=== PATIENT | female | born 1955 | race Caucasian/White ===

== ENCOUNTER → 2018-03-23 16:02 | Outpatient (CLI) | payer BC, SELFPAY ==
[2018-03-25 15:47] LABS: Progesterone 4.6 ng/mL
[2018-03-26 22:16] LABS: Estrogen 125.4 pg/mL
== END ==
PROVIDERS: Visit Provider Naturopath
DX: N95.1 Menopausal and female climacteric states (principal)
CPT/HCPCS: 36415; 82672; 83001; 83002; 84144

== ENCOUNTER → 2018-04-27 14:45 | Outpatient (CLI) | payer BC, SELFPAY ==
[2018-04-27 16:41] LABS: Free T3, Triiodothyronine Free 3.24 pg/mL (2.77-5.27)
== END ==
PROVIDERS: Visit Provider Naturopath
DX: E03.9 Hypothyroidism, unspecified (principal)
CPT/HCPCS: 36415; 84439; 84481

== ENCOUNTER → 2018-06-02 12:30 | Outpatient (CLI) | payer BC, SELFPAY ==
[2018-06-02 14:52] LABS: Free T3, Triiodothyronine Free 4.21 pg/mL (2.77-5.27); Free T4, Direct Thyroxine 1.52 ng/dL (0.78-2.19)
[2018-06-02 15:05] LABS: Thyroid Stimulating Hormone < 0.02 uIU/mL (0.47-4.68)
== END ==
PROVIDERS: PCP Family Medicine; Visit Provider Naturopath
DX: E06.3 Autoimmune thyroiditis (principal)
CPT/HCPCS: 36415; 84439; 84443; 84481

== ENCOUNTER → 2018-08-13 14:11 | Outpatient (CLI) | payer BC, SELFPAY ==
[2018-08-15 12:55] LABS: Sex Hormone Binding Globulin 97 nmol/L (14-73)
[2018-08-15 15:33] LABS: Estradiol < 15 pg/mL
[2018-08-15 15:34] LABS: Progesterone 3.4 ng/mL
[2018-08-18 09:36] LABS: Estrogen 193.6 pg/mL
== END ==
PROVIDERS: Visit Provider Naturopath
DX: N95.1 Menopausal and female climacteric states (principal)
CPT/HCPCS: 36415; 82670; 82672; 83001; 83002; 84144; 84270

== ENCOUNTER → 2018-11-10 13:19 | Outpatient (CLI) | payer BC, SELFPAY ==
[2018-11-10 14:45] LABS: Free T3, Triiodothyronine Free 3.36 pg/mL (2.77-5.27); Free T4, Direct Thyroxine 1.27 ng/dL (0.78-2.19)
[2018-11-10 14:59] LABS: Thyroid Stimulating Hormone < 0.02 uIU/mL (0.47-4.68)
== END ==
PROVIDERS: PCP Family Medicine; Visit Provider Naturopath
DX: E07.9 Disorder of thyroid, unspecified (principal)
CPT/HCPCS: 36415; 84439; 84443; 84481

== ENCOUNTER → 2018-11-23 08:26 | Outpatient (CLI) | payer BC, SELFPAY ==
--- NOTE | 2018-11-23 | DI.US.S_ITS ---
PROCEDURE: US THYROID INDICATIONS: HISTORY OF THYROID NODULES TECHNIQUE: Real-time scanning was performed of the thyroid gland, with image documentation. COMPARISON: [facility], [place], THYROID, 01/21/2018, 11:06. FINDINGS: Right: The right thyroid measures 9 x 11 x 34 mm and contains no cystic or solid mass. Left: The left thyroid gland measures 7 x 8 x 29 mm, also normal in size, and within the mid third of the left thyroid lobe there is a 3 x 2 x 3 mm nodule not changed from the prior study. There is inferior thyroid nodule measuring 5 x 4 x 3 mm and previously the same in size. No new nodule has developed Isthmus: 2 mm thickness. IMPRESSION: Previously present left-sided two small thyroid nodules at the middle third and the lower third of the gland are stable in appearance over time, with reference to the prior thyroid ultrasound in January of last year. Dictated by: Abdirahman Quinonez M.D. on 11/23/2018 at 11:29 Approved by: Abdirahman Quinonez M.D. on 11/23/2018 at 11:32
== END ==
PROVIDERS: PCP Family Medicine; Visit Provider Naturopath
DX: E04.2 Nontoxic multinodular goiter (principal)
CPT/HCPCS: 76536

== ENCOUNTER → 2019-01-29 13:39 | Outpatient (CLI) | payer BC, SELFPAY ==
--- NOTE | 2019-01-29 | DI.US.S_ITS ---
PROCEDURE: US ABDOMEN COMPLETE INDICATIONS: UPPER ABDOMINAL PAIN TECHNIQUE: Real-time scanning was performed of the abdominal and retroperitoneal organs, with image documentation. COMPARISON: [facility], CT, ABDOMEN/PELVIS WITH CONTRAST, 01/16/2017, 7:36. FINDINGS: Liver: Liver is normal in size and homogeneous in echotexture. Gallbladder: Absent Biliary ducts: Intrahepatic bile ducts are non-dilated. Extrahepatic bile duct caliber measures 6-7 mm. Normal is 6-7 mm or less in diameter, or 10 mm or less post-cholecystectomy. Pancreas: Visualized portions of the pancreas are sonographically normal. Spleen: Spleen is normal in size and homogeneous in echotexture. Kidneys: Kidneys are normal in size and echotexture. Right kidney measures 10.2 cm long; left kidney measures 10.2 cm long. No hydronephrosis or nephrolithiasis. No solid masses. The renal cortex measures within normal limits for thickness. Aorta: Visualized aorta is normal in caliber at less than 3 cm. Iliacs: Proximal common iliac arteries are normal in caliber at less than 2.5 cm. IVC: Intrahepatic inferior vena cava is patent. Miscellaneous: No free abdominal fluid. Additional, dedicated ultrasound scanning is performed at the area of left lower quadrant pain, as described by the patient. No focal ultrasound abnormalities are seen within this region. IMPRESSION: No imaging explanation is found for this patient's presenting history of abdominal pain. No ultrasound abnormalities can be seen involving the left lower quadrant. Status post cholecystectomy, without biliary dilatation. Dictated by: Matheus Davenport M.D. on 01/29/2019 at 15:37 Approved by: Matheus Davenport M.D. on 01/29/2019 at 15:39
== END ==
PROVIDERS: PCP Family Medicine; Visit Provider Naturopath
DX: R10.10 Upper abdominal pain, unspecified (principal); R10.32 Left lower quadrant pain; Z90.49 Acquired absence of other specified parts of digestive tract
CPT/HCPCS: 76700

== ENCOUNTER → 2019-02-26 13:26 | Outpatient (CLI) | payer BC, SELFPAY ==
--- NOTE | 2019-02-26 | DI.CT.S_ITS ---
PROCEDURE: CT ABDOMEN PELVIS W CON INDICATIONS: ABDOMINAL PAIN/DIVERTICULOSIS TECHNIQUE: After the administration of oral and intravenous contrast, 5 mm thick sections acquired from the diaphragms to the symphysis. 5 mm thick coronal and sagittal reformats were performed. For radiation dose reduction, the following was used: automated exposure control, adjustment of mA and/or kV according to patient size. COMPARISON: [facility], CT, ABDOMEN/PELVIS WITH CONTRAST, 01/16/2017, 7:36. FINDINGS: Image quality: Excellent. ABDOMEN: Lung bases: Lung bases are clear. Heart size is normal. Solid organs: Hepatic steatosis. Gallbladder negative. Prominence of the extrahepatic bile ducts: No radiopaque choledocholithiasis is seen and this could be due to postoperative appearance. Biliary system is non-dilated. Pancreas enhances normally. Spleen is normal in size and enhancement. No adrenal nodules. Kidneys are normal in size and enhancement, without hydronephrosis. Peritoneum and bowel: Stomach, small bowel, and colon loops are normal in caliber and wall thickness. No free fluid or air. Appendix is not clearly identified however no suspicious pericecal inflammatory changes are identified Moderate stool is present. No evidence of diverticulitis is seen. Nodes and vessels: No retroperitoneal or mesenteric adenopathy. Aorta and inferior vena cava are normal in caliber. Miscellaneous: No ventral hernias. PELVIS: Genitourinary: Bladder wall thickness is normal. Miscellaneous: No inguinal hernias or adenopathy. Bones: No suspicious bony lesions. No vertebral body compression fractures. IMPRESSION: No acute process. No evidence of acute diverticulitis. Hepatic steatosis. Dictated by: Devon Rapp M.D. on 02/26/2019 at 15:20 Approved by: Devon Rapp M.D. on 02/26/2019 at 15:26
== END ==
PROVIDERS: PCP Family Medicine; Referring Provider Naturopath; Visit Provider Family Medicine
DX: R10.9 Unspecified abdominal pain (principal); K57.90 Diverticulosis of intestine, part unspecified, without perforation or abscess without bleeding; K76.0 Fatty (change of) liver, not elsewhere classified
CPT/HCPCS: 74177; Q9967

== ENCOUNTER → 2019-03-03 13:59 | Outpatient (CLI) | payer BC, SELFPAY ==
[2019-03-03 14:30] LABS: Add Manual Diff / Slide Review NO; Basophils Absolute Auto 100 /uL (0-100); Basophils Percent Auto 1.1 % (0-2); Eosinophils Absolute Auto 100 /uL (0-450); Eosinophils Percent Auto 1.8 % (2-4); Hematocrit 41.5 % (36-46); Lymphocytes Absolute Auto 2100 /uL (1100-4500); Lymphocytes Percent Auto 36.7 % (25-40); Mean Corpuscular HGB Conc 33.7 % (30-36); Mean Corpuscular Hemoglobin 32.1 PG (26-34); Mean Corpuscular Volume 95.3 fL (80-100); Monocytes Absolute Auto 300 /uL (0-900); Monocytes Percent Auto 5.4 % (3-14); Neutrophils Absolute Auto 3100 /uL (1500-7000); Platelet Count 256 X10^3/uL (150-400); Red Blood Cell Count 4.36 X10^6/uL (4.0-5.2); Red Cell Distribution Width 11.7 % (11.6-14.8); White Blood Cell Count 5.6 X10^3/uL (4.5-11.0)
[2019-03-03 14:51] LABS: Erythrocyte Sedimentation Rate 7 MM/HR (0-20)
[2019-03-03 15:03] LABS: C-Reactive Protein Quant < 0.5 mg/dL (<1.0)
[2019-03-03 15:12] LABS: Free T3, Triiodothyronine Free 4.16 pg/mL (2.77-5.27)
== END ==
PROVIDERS: PCP Family Medicine; Visit Provider Naturopath
DX: K58.9 Irritable bowel syndrome, unspecified (principal); E03.9 Hypothyroidism, unspecified
CPT/HCPCS: 36415; 84436; 84481; 85025; 85651; 86140

== ENCOUNTER → 2019-05-25 12:20 | Outpatient (CLI) | payer BC, SELFPAY ==
[2019-05-25 13:19] LABS: Free T3, Triiodothyronine Free 4.14 pg/mL (2.77-5.27)
[2019-05-25 13:33] LABS: Thyroid Stimulating Hormone < 0.02 uIU/mL (0.47-4.68)
[2019-05-25 16:11] LABS: Progesterone, Total 2.28 ng/mL
[2019-05-28 10:15] LABS: Estrogen 79.7 pg/mL
== END ==
PROVIDERS: PCP Family Medicine; Visit Provider Naturopath
DX: L27.8 Dermatitis due to other substances taken internally (principal); E03.9 Hypothyroidism, unspecified; N95.1 Menopausal and female climacteric states
CPT/HCPCS: 36415; 82672; 84144; 84439; 84443; 84481; 86255

== ENCOUNTER → 2019-09-15 13:11 | Outpatient (CLI) | payer BC, SELFPAY ==
[2019-09-20 14:11] LABS: Estrogen 86.3 pg/mL
== END ==
PROVIDERS: PCP Family Medicine; Visit Provider Naturopath
DX: N95.1 Menopausal and female climacteric states (principal)
CPT/HCPCS: 36415; 82672; 84144

== ENCOUNTER → 2019-10-05 10:45 | Outpatient (CLI) | payer BC, SELFPAY ==
[2019-10-05 12:51] LABS: Free T3, Triiodothyronine Free 4.13 pg/mL (2.77-5.27); Free T4, Direct Thyroxine 1.14 ng/dL (0.78-2.19)
[2019-10-05 13:05] LABS: Thyroid Stimulating Hormone < 0.02 uIU/mL (0.47-4.68)
== END ==
PROVIDERS: PCP Family Medicine; Visit Provider Naturopath
DX: E06.3 Autoimmune thyroiditis (principal)
CPT/HCPCS: 36415; 84439; 84443; 84481

== ENCOUNTER → 2019-10-08 11:57 | Outpatient (CLI) | payer BC, SELFPAY ==
[2019-10-08 12:54] LABS: Erythrocyte Sedimentation Rate 5 MM/HR (0-20)
[2019-10-08 13:46] LABS: C-Reactive Protein Quant < 0.5 mg/dL (<1.0)
[2019-10-08 14:50] LABS: Folate > 20.0 ng/mL (2.76-20.0); Vitamin B12 755 pg/mL (239-931)
== END ==
PROVIDERS: Visit Provider Naturopath
DX: L27.8 Dermatitis due to other substances taken internally (principal)
CPT/HCPCS: 36415; 82607; 82746; 85651; 86140

== ENCOUNTER → 2019-10-13 14:46 | Outpatient (CLI) | payer BC, SELFPAY ==
--- NOTE | 2019-10-13 | DI.US.S_ITS ---
PROCEDURE: US THYROID INDICATIONS: THYROID NODULES TECHNIQUE: Real-time scanning was performed of the thyroid gland, with image documentation. COMPARISON: [facility], [place], [place] THYROID, 11/23/2018, 9:31. FINDINGS: Right: Thyroid lobe measures 3.7 x 0.9 x 0.8 cm, and is homogeneous in echotexture. Left: Thyroid lobe measures 2.4 x 0.6 x 0.6 cm, and is homogenous in echotexture. Isthmus: 7.0 mm thick. Nodule number: 1 Location: Left mid Size: Unchanged at 0.2 x 0.2 x 0.2 cm. Composition: Solid Echogenicity: Hypoechoic Shape: wider than tall. Margins: Smooth Echogenic foci: None Total points: 4 ACR TI-RADS category: Moderately suspicious Nodule number: 2 Location: Left inferior Size: Unchanged at 0.7 x 0.3 x 0.4 cm. Composition: Solid Echogenicity: Hypoechoic Shape: wider than tall. Margins: Smooth Echogenic foci: None Total points: 4 ACR TI-RADS category: Suspicious IMPRESSION: Stable left thyroid nodules. Given the small size, no follow up is warranted. ACR TI-RADS definitions and recommendations: TI-RADS 1 (benign): 0 points. FNA not needed. TI-RADS 2 (not suspicious): 2 points. FNA not needed. TI-RADS 3 (mildly suspicious): 3 points. * FNA if 2.5 cm or larger, follow up if 1.5 cm or larger (at 1, 3, and 5 years). TI-RADS 4 (moderately suspicious): 4-6 points. * FNA if 1.5 cm or larger, follow up if 1 cm or larger (at 1, 2, 3, and 5 years). TI-RADS 5 (highly suspicious): 7 points or more. * FNA if 1 cm or larger, follow up if 0.5 cm or larger (every year for 5 years). Dictated by: Neil BERNARDO Interpreted: Sol Shaw MD on 10/13/2019 at 15:45 Approved by: Sol Shaw MD, PhD on 10/13/2019 at 16:36
== END ==
PROVIDERS: Visit Provider Naturopath
DX: E04.2 Nontoxic multinodular goiter (principal)
CPT/HCPCS: 76536

== ENCOUNTER → 2020-10-16 10:46 | Outpatient (CLI) | payer BC, SELFPAY ==
--- NOTE | 2020-10-16 | DI.US.S_ITS ---
PROCEDURE: US THYROID INDICATIONS: THYROID NODULE TECHNIQUE: Real-time scanning was performed of the thyroid gland, with image documentation. COMPARISON: [facility], [place], [place] THYROID, 10/13/2019, 14:53. FINDINGS: Right: Thyroid lobe measures 4.2 x 1-2 x 0.8 cm, and is homogeneous in echotexture. Left: Thyroid lobe measures 3.2 x 1.0 x 0.7 cm, and is homogenous in echotexture. No significant change in appearance or size of left sub 5 mm and subcentimeter nodules. Isthmus: 3.0 mm thick. IMPRESSION: Stable appearance and size of left sub 5 mm and subcentimeter nodules. Given the small size, no follow-up is warranted. ACR TI-RADS definitions and recommendations: TI-RADS 1 (benign): 0 points. FNA not needed. TI-RADS 2 (not suspicious): 2 points. FNA not needed. TI-RADS 3 (mildly suspicious): 3 points. * FNA if 2.5 cm or larger, follow up if 1.5 cm or larger (at 1, 3, and 5 years). TI-RADS 4 (moderately suspicious): 4-6 points. * FNA if 1.5 cm or larger, follow up if 1 cm or larger (at 1, 2, 3, and 5 years). TI-RADS 5 (highly suspicious): 7 points or more. * FNA if 1 cm or larger, follow up if 0.5 cm or larger (every year for 5 years). Dictated by: Neil BERNARDO Interpreted: France Rothman MD on 10/16/2020 at 12:54 Approved by: France Rothman M.D. on 10/16/2020 at 15:01
[2020-10-16 12:34] LABS: Free T3, Triiodothyronine Free 3.33 pg/mL (2.77-5.27); Free T4, Direct Thyroxine 1.19 ng/dL (0.78-2.19)
[2020-10-16 12:54] LABS: Thyroid Stimulating Hormone < 0.015 uIU/mL (0.47-4.68)
== END ==
PROVIDERS: Referring Provider Naturopath; Visit Provider Naturopath
DX: E04.2 Nontoxic multinodular goiter (principal)
CPT/HCPCS: 36415; 76536; 84439; 84443; 84481

== ENCOUNTER → 2021-05-04 08:06 | Outpatient (CLI) | payer BC, SELFPAY ==
[2021-05-04 09:58] LABS: Free T3, Triiodothyronine Free 3.63 pg/mL (2.77-5.27); Free T4, Direct Thyroxine 0.96 ng/dL (0.78-2.19)
[2021-05-04 10:13] LABS: Thyroid Stimulating Hormone < 0.015 uIU/mL (0.47-4.68)
[2021-05-04 12:32] LABS: Alanine Aminotransferase 34 IU/L (<35); Albumin 4.3 g/dL (3.5-5.0); Albumin Globulin Ratio 1.5 (1.0-2.8); Alkaline Phosphatase 113 U/L (38-126); Aspartate Aminotransferase 44 IU/L (14-36); Bilirubin Total 0.5 mg/dL (0.2-1.3); Blood Urea Nitrogen 17 mg/dL (7-17); Carbon Dioxide 29 mmol/L (22-32); Chloride 106 mmol/L (98-107); Estimated Glomerular Filt Rate > 60.0 mL/min (>60); Globulin 2.9 g/dL (1.7-4.1); Glucose 78 mg/dL (80-110); HEMOLYSIS < 15 (0-50); Potassium 5.3 mmol/L (3.4-5.1); Sodium 141 mmol/L (137-145); Total Protein 7.2 g/dL (6.3-8.2)
[2021-05-04 16:13] LABS: Add Manual Diff / Slide Review NO; Basophils Absolute Auto 0 /uL (0-100); Basophils Percent Auto 0.5 % (0-2); Eosinophils Absolute Auto 200 /uL (0-450); Eosinophils Percent Auto 2.5 % (2-4); Hematocrit 38.4 % (36-46); Lymphocytes Absolute Auto 2200 /uL (1100-4500); Lymphocytes Percent Auto 33.2 % (25-40); Mean Corpuscular HGB Conc 33.8 % (30-36); Mean Corpuscular Hemoglobin 31.7 PG (26-34); Mean Corpuscular Volume 93.6 fL (80-100); Monocytes Absolute Auto 400 /uL (0-900); Monocytes Percent Auto 5.8 % (3-14); Neutrophils Absolute Auto 3800 /uL (1500-7000); Platelet Count 281 X10^3/uL (150-400); Red Cell Distribution Width 11.8 % (11.6-14.8); White Blood Cell Count 6.6 X10^3/uL (4.5-11.0)
== END ==
PROVIDERS: Referring Provider Naturopath; Visit Provider Naturopath
DX: K58.9 Irritable bowel syndrome, unspecified (principal); E06.3 Autoimmune thyroiditis
CPT/HCPCS: 36415; 80053; 84439; 84443; 84481; 85025

== ENCOUNTER → 2022-01-21 08:39 | Outpatient (CLI) | payer MEDICARE, SELFPAY ==
[2022-01-21 10:00] LABS: Add Manual Diff / Slide Review NO; Basophils Absolute Auto 0 /uL (0-100); Basophils Percent Auto 0.6 % (0-2); Eosinophils Absolute Auto 100 /uL (0-450); Eosinophils Percent Auto 2.2 % (2-4); Lymphocytes Absolute Auto 1800 /uL (1100-4500); Lymphocytes Percent Auto 32.7 % (25-40); Mean Corpuscular HGB Conc 34.2 % (30-36); Mean Corpuscular Hemoglobin 32.1 PG (26-34); Mean Corpuscular Volume 93.6 fL (80-100); Monocytes Absolute Auto 300 /uL (0-900); Neutrophils Absolute Auto 3200 /uL (1500-7000); Neutrophils Percent Auto 58.5 % (50-75); Platelet Count 307 X10^3/uL (150-400); Red Blood Cell Count 4.38 X10^6/uL (4.0-5.2); Red Cell Distribution Width 11.6 % (11.6-14.8); White Blood Cell Count 5.5 X10^3/uL (4.5-11.0)
[2022-01-21 10:02] LABS: Alanine Aminotransferase 24 IU/L (<35); Albumin 4.5 g/dL (3.5-5.0); Albumin Globulin Ratio 1.4 (1.0-2.8); Alkaline Phosphatase 101 U/L (38-126); Aspartate Aminotransferase 35 IU/L (14-36); BUN Creatinine Ratio 17.3 (6-22); Bilirubin Total 0.5 mg/dL (0.2-1.3); Blood Urea Nitrogen 14 mg/dL (7-17); Calcium 9.8 mg/dL (8.4-10.2); Carbon Dioxide 32 mmol/L (22-32); Chloride 104 mmol/L (98-107); Estimated Glomerular Filt Rate > 60.0 mL/min (>60); Globulin 3.2 g/dL (1.7-4.1); Glucose 86 mg/dL (80-110); HEMOLYSIS < 15 (0-50); Potassium 4.2 mmol/L (3.4-5.1); Sodium 140 mmol/L (137-145); Total Protein 7.7 g/dL (6.3-8.2)
[2022-01-21 10:33] LABS: Free T4, Direct Thyroxine 1.53 ng/dL (0.78-2.19)
[2022-01-21 10:47] LABS: Thyroid Stimulating Hormone < 0.015 uIU/mL (0.47-4.68)
== END ==
PROVIDERS: PCP Family Medicine; Referring Provider Naturopath; Visit Provider Naturopath
DX: E03.9 Hypothyroidism, unspecified (principal); K58.9 Irritable bowel syndrome, unspecified
CPT/HCPCS: 36415; 80053; 84439; 84443; 84481; 85025

== ENCOUNTER → 2022-06-27 14:32 | Outpatient (CLI) | payer MEDICARE, SELFPAY ==
[2022-06-27 16:50] LABS: Free T3, Triiodothyronine Free 4.87 pg/mL (2.77-5.27); Free T4, Direct Thyroxine 1.38 ng/dL (0.78-2.19)
[2022-06-27 17:04] LABS: Thyroid Stimulating Hormone < 0.015 uIU/mL (0.47-4.68)
== END ==
PROVIDERS: PCP Family Medicine; Referring Provider Naturopath; Visit Provider Naturopath
DX: E03.9 Hypothyroidism, unspecified (principal)
CPT/HCPCS: 36415; 84439; 84443; 84481

== ENCOUNTER → 2022-12-10 07:06 | Outpatient (CLI) | payer MEDICARE, SELFPAY ==
[2022-12-10 08:49] LABS: Alanine Aminotransferase 28 IU/L (<35); Albumin 4.3 g/dL (3.5-5.0); Albumin Globulin Ratio 1.4 (1.0-2.8); Alkaline Phosphatase 110 U/L (38-126); Aspartate Aminotransferase 36 IU/L (14-36); BUN Creatinine Ratio 20.3 (6-22); Bilirubin Total 0.6 mg/dL (0.2-1.3); Blood Urea Nitrogen 16 mg/dL (7-17); Calcium 9.4 mg/dL (8.4-10.2); Carbon Dioxide 31 mmol/L (22-32); Chloride 102 mmol/L (98-107); Estimated Glomerular Filt Rate > 60 mL/min (>60); Glucose 84 mg/dL (80-110); HEMOLYSIS < 15 (0-50); Potassium 4.4 mmol/L (3.4-5.1); Sodium 138 mmol/L (137-145); Total Protein 7.3 g/dL (6.3-8.2)
[2022-12-10 09:06] LABS: Free T3, Triiodothyronine Free 3.76 pg/mL (2.77-5.27); Free T4, Direct Thyroxine 1.13 ng/dL (0.78-2.19)
[2022-12-10 09:46] LABS: Thyroid Stimulating Hormone < 0.015 uIU/mL (0.47-4.68)
== END ==
PROVIDERS: PCP Family Medicine; Referring Provider Naturopath; Visit Provider Naturopath
DX: E03.9 Hypothyroidism, unspecified (principal); K58.9 Irritable bowel syndrome, unspecified
CPT/HCPCS: 36415; 80053; 84439; 84443; 84481

== ENCOUNTER → 2023-08-28 08:23 | Outpatient (CLI) | payer MEDICARE, SELFPAY ==
[2023-08-28 09:56] LABS: Add Manual Diff / Slide Review NO; Basophils Absolute Auto 100 /uL (0-100); Basophils Percent Auto 1.1 % (0-2); Eosinophils Absolute Auto 200 /uL (0-450); Hematocrit 42.7 % (36-46); Hemoglobin 14.7 g/dL (12.0-16.0); Lymphocytes Absolute Auto 2000 /uL (1100-4500); Lymphocytes Percent Auto 36.9 % (25-40); Mean Corpuscular HGB Conc 34.4 % (30-36); Mean Corpuscular Hemoglobin 31.9 PG (26-34); Mean Corpuscular Volume 92.5 fL (80-100); Monocytes Absolute Auto 300 /uL (0-900); Monocytes Percent Auto 5.3 % (3-14); Neutrophils Absolute Auto 2900 /uL (1500-7000); Neutrophils Percent Auto 53.7 % (50-75); Platelet Count 300 X10^3/uL (150-400); Red Blood Cell Count 4.62 X10^6/uL (4.0-5.2); Red Cell Distribution Width 12.1 % (11.6-14.8); White Blood Cell Count 5.3 X10^3/uL (4.5-11.0)
[2023-08-28 10:03] LABS: Hemoglobin A1C% w Est Avg Glu 5.2 % (4.0-6.0)
[2023-08-28 10:23] LABS: HEMOLYSIS < 15 (0-50); Iron 156 ug/dL (37-170)
[2023-08-28 10:24] LABS: Alanine Aminotransferase 24 IU/L (<35); Albumin 4.5 g/dL (3.5-5.0); Albumin Globulin Ratio 1.6 (1.0-2.8); Alkaline Phosphatase 110 U/L (38-126); Aspartate Aminotransferase 34 IU/L (14-36); BUN Creatinine Ratio 19.7 (6-22); Bilirubin Total 0.4 mg/dL (0.2-1.3); Blood Urea Nitrogen 15 mg/dL (7-17); Calcium 10.3 mg/dL (8.4-10.2); Carbon Dioxide 30 mmol/L (22-32); Chloride 101 mmol/L (98-107); Cholesterol 231 mg/dL (140-199); Estimated Glomerular Filt Rate > 60 mL/min (>60); Globulin 2.8 g/dL (1.7-4.1); Glucose 82 mg/dL (80-110); HDL Cholesterol 73 mg/dL (40-60); HEMOLYSIS < 15 (0-50); LDL Cholesterol Calculated 119 mg/dL (<100); Potassium 4.5 mmol/L (3.4-5.1); Sodium 139 mmol/L (137-145); Total Protein 7.3 g/dL (6.3-8.2); Triglycerides 196 mg/dL (35-150)
[2023-08-28 10:34] LABS: Percent Iron Saturation 46 % (15-50); Total Iron Binding Capacity 340 ug/dL (265-497); Transferrin 288 mg/dL (206-381)
[2023-08-28 10:39] LABS: Free T3, Triiodothyronine Free 4.02 pg/mL (2.77-5.27); Free T4, Direct Thyroxine 1.08 ng/dL (0.78-2.19)
[2023-08-28 10:52] LABS: Thyroid Stimulating Hormone < 0.015 uIU/mL (0.47-4.68)
[2023-08-28 10:55] LABS: Ferritin 62 ng/mL (11-264)
[2023-08-28 11:09] LABS: Vitamin B12 751 pg/mL (239-931)
[2023-08-29 07:59] LABS: Thyroid Peroxidase Antibodies 19 IU/mL (0-34)
[2023-08-29 08:51] LABS: Folate > 20.0 ng/mL (2.76-20.0)
[2023-08-29 20:12] LABS: Anti Thyroglobulin Antibody <1.0 IU/mL (0.0-0.9)
== END ==
PROVIDERS: PCP Family Medicine; Referring Provider Naturopath; Visit Provider Naturopath
DX: Z00.01 Encounter for general adult medical examination with abnormal findings (principal); E03.9 Hypothyroidism, unspecified; K31.84 Gastroparesis; M62.831 Muscle spasm of calf
CPT/HCPCS: 36415; 80053; 80061; 82607; 82728; 82746; 83036; 83540; 83550; 84439; 84443; 84481; 85025; 86376; 86800

== ENCOUNTER → 2023-10-28 07:54 | Outpatient (CLI) | payer MEDICARE, SELFPAY ==
[2023-10-28 13:33] LABS: Free T3, Triiodothyronine Free 3.47 pg/mL (2.77-5.27); Free T4, Direct Thyroxine 1.11 ng/dL (0.78-2.19)
[2023-10-28 13:47] LABS: Thyroid Stimulating Hormone < 0.015 uIU/mL (0.47-4.68)
== END ==
PROVIDERS: Referring Provider Naturopath; Visit Provider Naturopath
DX: E03.9 Hypothyroidism, unspecified (principal); E78.5 Hyperlipidemia, unspecified
CPT/HCPCS: 36415; 84439; 84443; 84481

== ENCOUNTER → 2024-03-30 07:55 | Outpatient (CLI) | payer MEDICARE, SELFPAY ==
[2024-03-30 10:51] LABS: Free T4, Direct Thyroxine 0.78 ng/dL (0.78-2.19)
[2024-03-30 11:04] LABS: Thyroid Stimulating Hormone 0.024 uIU/mL (0.47-4.68)
== END ==
LOC: LAB 07:56
PROVIDERS: PCP Naturopath; Referring Provider Naturopath; Visit Provider Naturopath
DX: E03.9 Hypothyroidism, unspecified (principal); K31.84 Gastroparesis
CPT/HCPCS: 36415; 84439; 84443; 84481

== ENCOUNTER → 2024-09-21 07:22 | Outpatient (CLI) | payer MEDICARE, SELFPAY ==
[2024-09-21 08:22] LABS: Add Manual Diff / Slide Review NO; Basophils Absolute Auto 100 /uL (0-100); Eosinophils Absolute Auto 200 /uL (0-450); Eosinophils Percent Auto 2.8 % (2-4); Hematocrit 43.9 % (36-46); Hemoglobin 14.8 g/dL (12.0-16.0); Lymphocytes Absolute Auto 2300 /uL (1100-4500); Lymphocytes Percent Auto 37.8 % (25-40); Mean Corpuscular HGB Conc 33.8 % (30-36); Mean Corpuscular Hemoglobin 32.3 PG (26-34); Mean Corpuscular Volume 95.6 fL (80-100); Monocytes Absolute Auto 400 /uL (0-900); Monocytes Percent Auto 6.2 % (3-14); Neutrophils Absolute Auto 3200 /uL (1500-7000); Neutrophils Percent Auto 52.2 % (50-75); Platelet Count 333 X10^3/uL (150-400); Red Blood Cell Count 4.59 X10^6/uL (4.0-5.2); Red Cell Distribution Width 12.2 % (11.6-14.8); White Blood Cell Count 6.2 X10^3/uL (4.5-11.0)
[2024-09-21 08:36] LABS: Hemoglobin A1C% w Est Avg Glu 5.1 % (4.0-6.0)
[2024-09-21 08:58] LABS: Alanine Aminotransferase 24 IU/L (<35); Albumin 4.6 g/dL (3.5-5.0); Albumin Globulin Ratio 1.6 (1.0-2.8); Alkaline Phosphatase 102 U/L (38-126); Aspartate Aminotransferase 38 IU/L (14-36); BUN Creatinine Ratio 19.5 (6-22); Bilirubin Total 0.6 mg/dL (0.2-1.3); Blood Urea Nitrogen 16 mg/dL (7-17); Carbon Dioxide 30 mmol/L (22-32); Chloride 103 mmol/L (98-107); Cholesterol 261 mg/dL (140-199); Estimated Glomerular Filt Rate > 60 mL/min (>60); Globulin 2.9 g/dL (1.7-4.1); Glucose 83 mg/dL (80-110); HDL Cholesterol 71 mg/dL (40-60); HEMOLYSIS < 15 (0-50); LDL Cholesterol Calculated 144 mg/dL (<100); Potassium 4.4 mmol/L (3.4-5.1); Sodium 140 mmol/L (137-145); Total Protein 7.5 g/dL (6.3-8.2); Triglycerides 232 mg/dL (35-150)
[2024-09-21 09:14] LABS: Free T3, Triiodothyronine Free 3.43 pg/mL (2.77-5.27); Free T4, Direct Thyroxine 0.84 ng/dL (0.78-2.19)
[2024-09-21 09:27] LABS: Thyroid Stimulating Hormone < 0.015 uIU/mL (0.47-4.68)
[2024-09-21 09:33] LABS: Ferritin 65 ng/mL (11-264)
== END ==
PROVIDERS: PCP Naturopath; Referring Provider Naturopath; Visit Provider Naturopath
DX: Z00.01 Encounter for general adult medical examination with abnormal findings (principal); E03.9 Hypothyroidism, unspecified; K31.84 Gastroparesis; R22.9 Localized swelling, mass and lump, unspecified; E78.5 Hyperlipidemia, unspecified; M62.831 Muscle spasm of calf
CPT/HCPCS: 36415; 80053; 80061; 82728; 83036; 84439; 84443; 84481; 85025

== ENCOUNTER → 2025-04-08 08:18 | Outpatient (CLI) | payer MEDICARE, SELFPAY ==
[2025-04-08 09:39] LABS: Alanine Aminotransferase 23 IU/L (<35); Albumin 4.6 g/dL (3.5-5.0); Albumin Globulin Ratio 1.8 (1.0-2.8); Alkaline Phosphatase 94 U/L (38-126); Aspartate Aminotransferase 37 IU/L (14-36); BUN Creatinine Ratio 21.3 (6-22); Bilirubin Total 0.5 mg/dL (0.2-1.3); Blood Urea Nitrogen 17 mg/dL (7-17); Calcium 9.6 mg/dL (8.4-10.2); Carbon Dioxide 29 mmol/L (22-32); Chloride 102 mmol/L (98-107); Estimated Glomerular Filt Rate > 60 mL/min (>60); Globulin 2.6 g/dL (1.7-4.1); Glucose 71 mg/dL (70-99); HEMOLYSIS < 15 (0-50); Potassium 4.1 mmol/L (3.4-5.1); Sodium 140 mmol/L (137-145); Total Protein 7.2 g/dL (6.3-8.2)
== END ==
LOC: LAB 08:19
PROVIDERS: PCP Naturopath; Referring Provider Naturopath; Visit Provider Naturopath
DX: Z00.01 Encounter for general adult medical examination with abnormal findings (principal); E03.9 Hypothyroidism, unspecified; E78.5 Hyperlipidemia, unspecified; K31.84 Gastroparesis; K59.00 Constipation, unspecified; M62.831 Muscle spasm of calf; N89.8 Other specified noninflammatory disorders of vagina; N94.818 Other vulvodynia; R22.9 Localized swelling, mass and lump, unspecified
CPT/HCPCS: 36415; 80053